=== PATIENT | male | born 1930 | race Caucasian/White ===

== ENCOUNTER 2019-08-14 23:39 | Inpatient (IN) | payer OTHER ==
[~2019-08-14] VITALS: Ht 182.9 cm; Wt 52.2 kg
[2019-08-15] MEDS ORDERED: NIACINAMIDE500 MG PO (05:36)
[2019-08-15] MEDS ORDERED: FLOMAX0.4 MG PO (05:37)
[2019-08-15] MEDS ORDERED: PROAIR HFA8.5 GM INH (05:39)
[2019-08-15] MEDS ORDERED: STIOLTO RESPIMAT4 GM INH (05:41)
--- NOTE | 2019-08-15 06:03 | NUR ---
Arrived via transport on a stretcher x2 transport staff @ 05:10. Transferred to bed 525 B x 4 assist. incontinent of urine upon arrival. Gives name as Redd which is not listed as any of his name(s). Order for jacques moraes and 1:1 while awake due to impulsive and SI expressed. TSH lab ordered. up in roslyn chair with jacques moraes in the day room at this writing.
[2019-08-15 07:40] VITALS: BP 138/69
--- NOTE | 2019-08-15 09:15 | NUR ---
THIS RN ATTEMPTED X 3 TO GET IN TOUCH WITH PATIENT'S DPOA (PATY DENNIS) ON PHONE NUMBER [phone] AND WAS TOLD IT WAS A WRONG NUMBER. THIS SUPERVISOR BOARDING CALLED [facility] FOR THE RIGHT NUMBER, AND WAS TOLD THAT THE ABOVE NUMBER IS THE ONLY NUMBER THEY HAVE FOR PATIENT'S DPOA. CLIENT PORTFOLIO MANAGER, DR. KENYON, AND GLOBAL REGULATORY LEAD AWARE. DR. KENYON GAVE PERMISSION TO ADMINISTER MEDICATION.
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
--- NOTE | 2019-08-15 16:09 | EKG ---
[facility] [place] [address] ELECTROCARDIOGRAM REPORT Name: LILIANA SOUTH Room #: [facility] Emergency Department ADM IN M.R.#: [id number] Admission: 08/15/19 Attend Phys: Faraz Bright DO Discharge: Date of : [birth year] Report #: [id number] THIS REPORT FOR: cc: MAU - Randi family physician/PCP MAU - No family physician/PCP Solis Prcie MD [facility] THIS REPORT FOR: //name// [facility] Test Date: 2019-08-15 Test Time: 11:38:44 Pat Name: LILIANA SOUTH Department: Room: [facility] Gender: M 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
--- NOTE | 2019-08-15 19:15 | NUR ---
Care of patient assumed at 1915. Patient is sitting in a recliner in the day room with 1:1 supervision sitting next to him. Patient is oriented to self only. Thinks the date is in the . Knows he is in the hospital, but not why or which hospital. Pleasant with staff and cooperates with assessment, though not able to appreciate or answer the questions. HS - vero, LS CTA though diminished, BS A x 4. Remains 1:1 while awake per orders.
[2019-08-15 19:33] VITALS: BP 123/67
--- NOTE | 2019-08-16 06:03 | NUR ---
Patient has been able to rest throughout the night despite using the bathroom. Patient has not reported SI but has made delusional comments regarding that staff is trying to kill him and that he needs to kill staff. Combative with toileting needs. Order obtained this AM to d/c 1:1 while awake status from BLAIR Viveros. Order obtained for lap aleisha to be used and secured in front. Requested for patient to be placed in dayroom for supervision while trial started of discontinuing 1:[address] Rose to evaluate this AM.
[2019-08-16 06:23] LABS: ABSOLUTE NEUTROPHILS 5.1 thou/uL (1.4-8.2); BASOPHILS 0.6 % (0.0-2.0); EOSINOPHILS 4.4 % (0.0-3.0); HEMATOCRIT 41.1 % (42.0-52.0); LYMPHOCYTES 14.5 % (24.0-44.0); MCH 31.7 pg (26.0-34.0); MCHC 33.9 g/dL (28.0-37.0); MCV 93.3 fL (80.0-100.0); MONOCYTES 8.5 % (1.0-8.0); PLATELET COUNT 209 thou/uL (150-400); RBC 4.41 mil/uL (4.50-6.00); RDW 12.8 % (10.5-14.5)
[2019-08-16 06:45] LABS: ALBUMIN 3.4 g/dL (3.4-5.0); CALCIUM 8.8 mg/dL (8.5-10.1); CREATININE 1.2 mg/dL (0.7-1.3); POTASSIUM 4.1 mmol/L (3.5-5.1); TOTAL BILIRUBIN 0.8 mg/dL (0.2-1.0)
[2019-08-16 07:15] VITALS: BP 159/93
--- NOTE | 2019-08-16 12:02 | NUR ---
RD RECOMMENDATIONS: 1) REC at least twice weekly weights as goal of no wt loss given low BMI 2) REC trial of ensure enlive BID until po trends better established, goal of 75% of meals consistently
[2019-08-16 12:36] VITALS: BP 168/86; BP 170/80
--- NOTE | 2019-08-16 12:38 | NUR ---
DELUSIONAL AND RUMINATIVE DURING 1;1 INTERACTION WITH NURSING STAFF-REPETIVIATIVE IN CONVERSATION-STATING MULTIPLE TIMES HAD BEEN "HERE" BEFORE AND THINGS WERE GREAT BUT NOW "IT'S TERRIBLE-THEY TREAT YOU LIKE A DOG-WON'T TAKE YOU TO THE BATHROOM AND "I HEARD THEM SAY LAST NIGHT "HE THINKS HE'S IN CHARGE AND WE ARE GOING TO SHOW HIM WHOSE IN CHARGE AND REFUSED TO HELP HIM-WITHHELD FOOD AND WATER UNTIL THIS MORNING WHEN "SOMEONE GAVE ME A CUP OF COLD COFFEE" "MY FOOD WAS TERRIBLE AND COLD BUT EVERYONE ELSE HAD HOT BISCUTS AND GRAVY-IT IS PART OF MY PUNISHMENT" HAS BEEN VOIDING FREQUENTLY THIS SHIFT-ASSSITED TO TOILET Q 1-2 HRS. DENIES C/O PAIN-DISCOMFORT. ORIENTED TO NAME ONLY-REMAINS ON FALLS PRECAUTIONS -GAIT VERY UNSTEADY AND RESISITVE WITH STAFF ASSISTANCE PUSHING STAFF AWAY AND REFUSING TO PULL PANTS DOWN UNTIL STAFF LEAVES HIM ALONE IN BATHROOM "I CAN DO IT" WHEN 2ND STAFF MEMBER SUMMONED BECOMES AGITATED AND COMBATIVE-OLANZAPINE 2.5MG GIVEN PO PRN FOR ABOVE NOTED.
--- NOTE | 2019-08-16 12:57 | NUR ---
ELIZABETH sent [facility] a referral for pt. ELIZABETH spoke with Joanna yesterday who asked her to do so. ELIZABETH team will continue to follow pt during his stay here.
--- NOTE | 2019-08-16 19:15 | NUR ---
Care of patient assumed at 1915. Patient is sittin gin recliner in day room. Confused, disoriented. Largely uncooperative with all cares/interventions. Combative, delusional, barely oriented to person. Finally gained med compliance with Clonidine that was ordered for elevated BP. Patient is taken to bed as he appears very drowsy. Within 20 minutes he is crawlingover the side rails. Patient placed back in recliner and taken back to day room for close supervision.
--- NOTE | 2019-08-16 19:18 | NUR ---
RESTLESS AND MILDLY AGITATED THROUGHOUT SHIFT-INSISTING THAT HE NEEDS TO GO HOME AND LOOKING FOR HIS WALLET AND BILLFOLD. GAIT IS VERY UNSTEADY AND CONFUSED-ORIENTED TO NAME ONLY-CALLING NURSE VASQUEZ AND ENTERING PEERS ROOMS LOOKING FOR "THAT WOMAN" SHE IS BRING ME TO MY TRUCK. CONTANT MOVEMENT. ZYDIS ODT 5MG GIVEN PO PRN AT APPROX. 1330 AND REPEATED AT 1800 FOR RESTLESSNESS,AGITATION. BP RECHECK MANUALLY Q 4 HOURS 160/86-162/84-170/80 AT 1730-HOWEVER PT IS VERY RESTLESS AND MOVING FREQUENTLY AND TALKING DURING BP CHECKS-PULSE RANGING FROM 70-90 AND REGULAR RATE AND RHYTHYM. SKIN W/D-DENIES C/O PAIN,ORR OR VISUAL DISTURBANCE. DR. CALVIN PAGED X2-AWAITNG RETURN CALL-DR. HESS CONTACTED AND O RECEIVED FOR CLONIDINE0.1MG PO NOW-AND REPORT GIVEN TO UNCOMING SHIFT
[2019-08-16 19:30] VITALS: BP 107/58
[2019-08-16 20:22] VITALS: BP 108/68
[2019-08-17 08:35] VITALS: BP 108/63
--- NOTE | 2019-08-17 10:13 | NUR ---
Pt in [facility] chairlocked. Bubba was in day room when I came on duty. Bubba talks a lot to self other,auditory hallucinations. Very disjointed chatter. Bubba did take his medications whole with out any reistance. Lungs sounded clearx2, pedal pulse strong and no pedal edema noted Bowel sounds active.Fluids encouraged and taken with meds when offered. Skin appears dry.Dr Rose attended pt. this Am.
[2019-08-17 18:47] VITALS: BP 108/63
--- NOTE | 2019-08-17 18:49 | NUR ---
Pt wasooum\nd my me in the day room,lap aleisha was around pt and chair alam was on. When asked a question Bubba brand designer is totally unrelated to the question .Alert x1. Dr Rose attended pt. Clientdid not have a bm , Lungs sounded clear, pedel pulse felt, no edema noted. Bubba eats moderated amts of food with encouragement. one 1 to Santhosh maldonado .
[2019-08-17 22:00] VITALS: BP 108/63
--- NOTE | 2019-08-18 02:37 | NUR ---
Assumed care of patient this pm shift. Patient sitting in mileu in a reclining chair. Patient denies pain. Patient denies hi/si. Patient is difficult to understand at times and talks about people he knows as if they are present during our assessment. Patient takes medications whole with fluids. Patients assessment shows no signs of acute distress, breath sounds clear, bowel sounds present, s1 s2 heard with auscultation. Patient is able to ambulate but has an unsteady, wobbly gait. We will continue to monitor per hospital protocol.
[2019-08-18 08:22] VITALS: BP 107/61
[2019-08-18 09:39] VITALS: BP 107/61
--- NOTE | 2019-08-18 10:31 | NUR ---
1030 RESUMMED CARE FROM OVERNIGHT SHIFT THIS AM, PATIENT IN DAY ROOM IN A RECLINER. PATIENTS ABDOMEN SOFT ROUND BOWEL SOUNDS PRESENT LUNGS CLEAR. PATIENT DENIES SI/HI/AH/VH AT PRESENT, IT IS SOMETIMES DIFFICULT TO UNDERSTAND AT TIMES. QUIET COOPERATIVE WILL CONTINUE TO MONITOR PATIENT FOR BEHAVIORS AND SAFETY.
[2019-08-18 20:14] VITALS: BP 111/83
--- NOTE | 2019-08-19 03:48 | NUR ---
08-18-19 CARE TRANSFERED AT 1915 OBSERVED PT IN DAY ROOM SITTING IN RECLINER. 1545 PT AAOX1, PT CALM AND COOPERATIVE DURING NURSING ASSESSMENT. PT DENIES ANY PAIN AND SI/SH/HI/VAH. PT HAS NO DIFFICULTIES DURING MEDICATION ADMIN. PT DOES NOT APPEAR TO BE IN ANY ACUTE EMOTIONAL DISTRESS AND ZERO ACUTE MEDICAL DISTRESS. WILL CONTINUE TO MONITOR PER [facility] PROTOCOL.
[2019-08-19 08:50] VITALS: BP 114/40
--- NOTE | 2019-08-19 11:52 | NUR ---
HAS BEEN VISIBLE IN DAYROOM IN [facility]-REPOSITIONED AND TOILETED Q 2 FOR COMFORT. MILDLY DROWSY-IS ROUSABLEW TO VERBAL QUEING BUT RESPONSES ARE MUMBLED,NON-GOAL DIRECTED-FRAGMENTED AND OFTEN TIMES INCOHERENT. ORIENTED TO NAME ONLY- DENIES C/O PAIN/DISCOMFORT. BS ACTIVE X 4-. AMBULATES WITH SBA X 1-SOME INCREASED AGITATION WITH TOILETING HE WILL GRAB ONTO PANTS,UNDERWEAR AND REFUSE TO LET GO-AT ONE POINT BEGAN TO STRIKE OUT AND CURSE AT STAFF DURING INCONTINENT CARE. REMAINS HIGH FALLS RISKD/T SEVERE CONFUSION,POOR IMPULSE CONTROL,WEAKNESS AND ATAXIA. APPETITE FAIR-ABLE TO FEED SELF WITH SET UP/PROMTPING-APPETITE FAIR. IS NOTED TO HAVE REDDEND AREA,MILD SWELLING TO RIGHT CALF-AREA NOT WARM TO TOUCH AND PT DENIES PAIN UPON PALPATION. DR CALVIN NOTIFIED-WILL CONTINUE TO MONITOR FOR INCREASED REDNESS,SWELLING,ELVATED TO TEMP OR PAIN.
--- NOTE | 2019-08-19 12:45 | NUR ---
FULL RANGE AFFECT DURING 1;1 WITH NURSING STAFF. DENIES SI/SH. ALERT AND ORIENTED X3. STATES SHE FEELS "LIKE I'M READY TO GO" AND DENIES SI/SH. REPORTS FEELING WORRIED ABOUT HER SISTER WHO LIVES [address] FROM HER AND IS SICK-ALSO REPORTS CONCERN FOR DOG WHO IS HOME ALONE AND CAR IN [place]ARKING LOT OF [facility]. DENIES SI/SH-STATES "I KNOW NOW I HAVE TO TAKE CARE OF MYSELF BUT I FEEL LIKE BEING HERE AND DOING NOTHING IS MAKING THINGS WORSE" REPORTS GOOD SLEEP BUT POOR APPETITE-"NOTHING TASTES GOOD" STATES NO BM X 3 DAYS-REFUSED MOM REQUESTING WARM PRUNE JUICE INSTEAD. DOES HAVE BS X 4-HYPOACTIVE GAIT STEADY WITHOUT ASSISTIVE DEVICES
--- NOTE | 2019-08-19 16:38 | NUR ---
Pt unable to participate in group due to cognitive deficit.
[2019-08-19 19:20] VITALS: BP 128/61
--- NOTE | 2019-08-19 23:29 | NUR ---
PT WAS IN THE DAYROOM, ON A GERICHAIR WITH LAP SANDRA IN PLACE AT TIME OF ASSESSMENT. PT WAS SLEEPING. LETHARGIC. PT DID NOT RESIST ASSESSMENT. PT GIVEN BEDTIME MED CRUHSED IN APPLESAUCE. PT WAS HESITANT IN TAKING MEDS AND VOICED TO NURSING " I WILL PUNCH YOU". PT WENT RIGHT BACK TO SLEEP AFTER MEDS. PT CURRENTLY IN THE DAYROOM ON THE GERICHAIR WITH LAP SANDRA IN PLACE. WILL CONTINUE TO MONITOR.
[2019-08-20 07:40] VITALS: BP 133/63
[2019-08-20 08:00] VITALS: BP 133/63
--- NOTE | 2019-08-20 10:16 | NUR ---
PT IN DAY ROOM IN RECLINER, LAB SANDRA OFF. UNABLE TO GIVE MEDS AT THIS TIME. PT SPIT OUT IN WATER CUP. PT NEEDS ASSIST WITH FEEDING.
--- NOTE | 2019-08-20 12:37 | NUR ---
SW received message from ROOSEVELT Martinez stating she has left several message with nursing staff and has not received a return call. She would like an update on pt. SW returned her call and received voicemail. SW left a voice message acknowledging her call.
--- NOTE | 2019-08-20 13:00 | NUR ---
GOT ORDERS CHANGED FOR MEDS TO BE CRUSHED AND CHANGED DEPAKOTE TO SPRINKLES.
--- NOTE | 2019-08-20 14:17 | NUR ---
PUT PRIMITIVO CURTIS IN YOGART, PT TOOK WITHOUT ANY ISSUES. GAVE PT WATER TO DRINK.
[2019-08-20 20:14] VITALS: BP 111/71
[2019-08-20 20:15] VITALS: BP 111/71
--- NOTE | 2019-08-21 02:08 | NUR ---
PATIENT HAS BEEN SITTING UP IN [facility] WITH LEGS INCLINED ALL EVENING. HE IS A/OX1. HE LEANS TO THE RIGHT WHEN SITTING. PILLOW PLACED FOR HEAD D/T HE RESTS IN ON THE WOOD OF THE ARMCHAIR. PATIENT REMOVES IT EACH TIME. LAP SANDRA IS ON AND FASTENED IN THE FRONT. PATIENT TOOK HIS MEDS CRUSHED IN YOGURT. HE DID NOT EACH MUCH FOR SNACK TONIGHT. HE REFUSED WATER WHEN TRYING TO GIVE. PATIENT HAS BEEN CALM FOR THE MOST PART. HE DOES GET RESTLESS AT TIMES. NO SI/HI/AVH NOTIED. PATIENT SLEEPING TONIGHT IN RECLINER. CONTINUING TO MONITOR.
[2019-08-21 05:38] LABS: ABSOLUTE NEUTROPHILS 6.4 thou/uL (1.4-8.2); BASOPHILS 0.6 % (0.0-2.0); EOSINOPHILS 2.1 % (0.0-3.0); HEMOGLOBIN 14.9 gm/dL (14.0-18.0); LYMPHOCYTES 8.8 % (24.0-44.0); MCH 31.4 pg (26.0-34.0); MCHC 33.2 g/dL (28.0-37.0); MCV 94.7 fL (80.0-100.0); MONOCYTES 10.5 % (1.0-8.0); PLATELET COUNT 201 thou/uL (150-400); RBC 4.76 mil/uL (4.50-6.00); WBC 8.2 thou/uL (4.0-11.0)
[2019-08-21 05:55] LABS: ALBUMIN 3.4 g/dL (3.4-5.0); CREATININE 1.4 mg/dL (0.7-1.3); POTASSIUM 3.9 mmol/L (3.5-5.1); TOTAL BILIRUBIN 1.1 mg/dL (0.2-1.0); TOTAL PROTEIN 6.6 g/dL (6.4-8.2)
[2019-08-21 09:07] VITALS: BP 115/61
--- NOTE | 2019-08-21 10:56 | NUR ---
HAS BEEN IN BED OR IN GERICHAIR SO FAR THIS SHIFT-SOMULENT BUT ROUSABLE TO VERBAL STIMULI. ORIENTED TO NAME ONLY-SPEECH INCOHERENT AND NON-GOAL DIRECTED. REQUIRES TOTAL ASSIST OF 1-2 WITH ALL ADLS AND CARES. APPETITE POOR. GAIT UNSTEADY ,RESISITIVE WITH TOILETING/INCONTINENT CARE HITTING AT AND TRYING TO KICK STAFF ALMOST LOSING FOORTING.
--- NOTE | 2019-08-21 14:49 | NUR ---
ELIZABETH received a vm from Elizabeth with [facility] stating they do not have any beds available for pt. ELIZABETH contacted pt's and provided this update. ELIZABETH sent her a listing of [place] facilities via Medicare.gov listing, and asked her to make a few choices and ELIZABETH will send out referrals for her. SW team will continue to follow pt during her stay on this unit.
[2019-08-21 19:34] VITALS: BP 143/84
--- NOTE | 2019-08-22 05:45 | NUR ---
PT ORIENTED TO SELF. CONFUSED. PT WAS IN HIS BED AT TIME OF ASSESSMENT. PT WAS COOPERATIVE WITH ASSESSMENT. PT TOOKS MEDS WHOLE WITH ORANGE JUICE PER PT'S REQUEST. PT SLEPT OFF AND ON THIS SHIFT. PT CURRENTLY AWAKE AND IN THE DAYROOM. FALL PRECAUTION IN PLACE. WILL CONTINUE TO MONITOR.
[2019-08-22 07:30] VITALS: BP 129/77
--- NOTE | 2019-08-22 08:11 | NUR ---
PT OUT IN DINNING AREA THIS AM IN KEILY CHAIR WITH ALEXIS FLORES. PT ALERT AND ORIENTED TO SELF. PT NEEDS HELP WITH EATING. PT TOOK AM MEDS WHOLE WITH WATER. PT DENIES ANY PAIN. PT LUNGS CLEAR. PT IS INCON. OF B/B AND NEEDS ASSISTANCE X2 TO PERFORM ADL'S.
--- NOTE | 2019-08-22 08:22 | NUR ---
RT Progress Note- Bubba's participation in both the milieu and recreation therapy has been minimal d/t patients cognitive deficits. Bubba is unable to follow through with tasks during activities, therefor has primarily participated in unstructured leisure- i.e. listening to music (he prefers western.) Bubba has not displayed any aggressive or agitative behaviors during RT interactions.
[2019-08-22 08:30] VITALS: BP 129/77
--- NOTE | 2019-08-22 16:37 | NUR ---
ELIZABETH sent referrals to [facility], [facility], and [facility]. ELIZABETH team will continue to follow pt during his stay on this unit.
[2019-08-22 19:50] VITALS: BP 112/68
--- NOTE | 2019-08-23 08:41 | NUR ---
RD Recommendations: 1) REC at least twice weekly weight checks given low BMI, goal of no loss. 2) Changed Ensure supplements timing to come on lunch and dinner trays when pt more awake/more likely to consume given morning sleepiness as of late.
[2019-08-23 10:09] VITALS: BP 123/67
[2019-08-23 15:39] VITALS: BP 123/67
--- NOTE | 2019-08-23 15:47 | NUR ---
PATIENT WAS UP IN [facility] WHEN CARE ASSUMED, LAB SANDRA IN PLACE. PATIENT IS ALERT, FORGETFUL, AND CONFUSED. PATIENT TOOK MORNING MEDICATION WHOLE WITHOUT DIFFICULTY. ASSISTED WITH MEALS BY STAFF. INCONTINENT ACRE PROVIDED PER STAFF. PATIENT DENIES SUICIDAL/HOMICIDAL IDEATION, NOT ABLE TO APPROPRIATELY RESPOND TO FURTHER ASSESSMENT QUESTIONS DUR TO COGNITIVE IMPAIRMENT. NO AGGRESSION OR AGITATION NOTED AT THIS TIME, WILL CONTINUE TO MONITOR FOR SAFETY.
[2019-08-23 19:35] VITALS: BP 104/55
--- NOTE | 2019-08-24 05:32 | NUR ---
Assumed care of pt @ 1900. Pt calm et cooperative this shift. Took medications whole without difficulty. Did not witness pt ambulation as he continues to rest in recliner most of shift. Two person assist with toileting most of the time. VSWNL. Health assessment with no abnormalities noted at present time. Unable to assess SI/HI due to pt's confusion but pt does not appear to be in any acute emotional distress at present time. Currently resting in recliner in dayroom with eyes closed. Will continue to monitor per protocol.
[2019-08-24 07:56] VITALS: BP 115/72
--- NOTE | 2019-08-24 14:21 | NUR ---
ELIZABETH followed up on referrals she sent the other day: [facility] [place] - denied due to no beds available [facility] - denied due to no beds available [facility] - denied due to no beds available [facility] - denied due to no male beds available ELIZABETH team will continue to follow pt during his stay on this unit.
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
--- NOTE | 2019-08-24 19:31 | NUR ---
NOTED DURING INCONTINENT CARE TO HAVE REDDENED AREA TO MIDLINE COCYX-NO OPEN AREAS SEEN-BARRIER CREAM APPLIED AND PAD IN GERICHAIR TO REDUCE PRESSURE-DID ATTEMPT TO LAY DOWN IN BED X 2 AND POSITION ON SIDE BUT BECOMES RESTLESS AND AGITATED IN BED TRYING TO CRAWL OVER SIDE RAIL-"I DON'T LIKE BEING IN THIS CAGE"CONTINUES TO BECOME AGITATED DURING TOILETING AND INCONTIENT CARE-GRABS ON TIGHTLY TO PANTS AND REFUSES TO LET GO-BEGINS TO SWEAR AND PULL AWAY FROM STAFF.
[2019-08-24 20:15] VITALS: BP 123/56
--- NOTE | 2019-08-25 00:56 | NUR ---
08/24/191899 ASSUMED CARE OF PT AFTER REPORT, 193 BASELINE ASSESSMENT COMPLETED, PT INCONTINENT IN CHAIR, ATTEMPTED TO GET IN BED, PT EXTREMELY COMBATIVE SCREAMING JUST LEAVE ME ALONE WILL LEAVE PT IN JUDITH CHAIR IN DAY ROOM SO OBSERVATION CAN BE FROM NURSES STATION, WITH CHUTE TAPPER'S IN ROOM. 2099 PT TOOK MED WITHOUT DIFFICULTY, AND HAD A COUPLE BITES OF YOGURT WITH IT, WILL CONTINUE TO MONITOR, FALL PRECAUTIONS IN PLACE.
[2019-08-25 08:21] VITALS: BP 119/66
[2019-08-25 09:52] VITALS: BP 119/66
--- NOTE | 2019-08-25 11:03 | NUR ---
1035 RESUMMED CARE FROM OVERNIGHT SHIFT THIS AM, PATIENT QUIET COOPERATIVE IN DAY ROOM. PATIENTS ABDOMEN SOFT ROUND BOWEL SOUNDS PRESENT LUNGS CLEAR. PATIENT TOOK MEDICATION WITHOUT INCIDENCE PATIENT DENIES SI/HI/AH/VH AT PRESENT. PATIENT QUIET IN RECLINER FOR COMFORT AND SAFETY, WILL CONTINUE TO MONITOR PATIENT FOR SAFETY AND BEHAVIORS.
[2019-08-25 19:57] VITALS: BP 103/42
[2019-08-25 22:00] VITALS: BP 103/42
--- NOTE | 2019-08-26 00:31 | NUR ---
Assumed care of patient this pm shift. Patient sitting in the mileu in a reclining chair with peers. Patient not interacting with peers but does speak to himself and sometimes uses profanity. Patient is alert and oriented to self only. Patients affect is flat. Patient is adherent with medications and takes them crushed. Patient denies pain. Patient denies si. Patient is difficult to understand due to the randomness of his thoughts. Patients assessment shows clear breath sounds diminished in the bases, active bowel sounds, and s1 s2 heard with auscultation. Patient is incontinent of bowel and bladder and wears a brief. We will continue to monitor per hospital policy.
[2019-08-26 09:06] VITALS: BP 115/64
[2019-08-26 10:16] LABS: ABSOLUTE NEUTROPHILS 5.7 thou/uL (1.4-8.2); BASOPHILS 0.6 % (0.0-2.0); EOSINOPHILS 1.7 % (0.0-3.0); HEMATOCRIT 46.2 % (42.0-52.0); HEMOGLOBIN 15.7 gm/dL (14.0-18.0); LYMPHOCYTES 11.6 % (24.0-44.0); MCH 31.9 pg (26.0-34.0); MCHC 33.9 g/dL (28.0-37.0); MCV 93.9 fL (80.0-100.0); MONOCYTES 9.5 % (1.0-8.0); PLATELET COUNT 188 thou/uL (150-400); POLYS 76.6 % (36.0-66.0); RBC 4.92 mil/uL (4.50-6.00); RDW 13.1 % (10.5-14.5); WBC 7.5 thou/uL (4.0-11.0)
[2019-08-26 10:34] LABS: ALBUMIN 3.5 g/dL (3.4-5.0); CALCIUM 9.4 mg/dL (8.5-10.1); CREATININE 1.3 mg/dL (0.7-1.3); MAGNESIUM 2.3 mg/dL (1.8-2.4); POTASSIUM 4.2 mmol/L (3.5-5.1); TOTAL BILIRUBIN 0.6 mg/dL (0.2-1.0); TOTAL PROTEIN 6.7 g/dL (6.4-8.2)
[2019-08-26 13:03] VITALS: BP 115/64
[2019-08-26 20:04] VITALS: BP 129/74
[2019-08-26 22:00] VITALS: BP 129/74
--- NOTE | 2019-08-27 05:49 | NUR ---
Assumed care of patient this pm shift. Patient oriented to self only. Patient [facility] Patient calm and relaxed occasionally speaking out but to no one person in particular. Patient does not appear to be in pain. Patient was unclear on the hi/si questions. Patients assessment shows clear and diminished in the bases breath sounds, active bowel sounds, and s1 s2 heard with auscultation. Patient takes medications crushed in pudding or applesauce. Patient is mostly incoherent. Patient is incontinent of bowel and bladder. We will continue to monitor per hospital policy.
[2019-08-27 07:35] VITALS: BP 115/74
--- NOTE | 2019-08-27 11:41 | NUR ---
ELIZABETH received a call from Elizabeth with [facility] stating that they now do have a male bed opening. The asked for ELIZABETH to send updates to see if they can still meet pt's needs. ELIZABETH contacted Elizabeth and explained pt will all need hospice as he has stopped eating. Elizabeth said they can accomodate. ELIZABETH told her she will speak with Anette first. ELIZABETH contacted Anette who agreed for pt to leave tomorrow to go to [facility] with hospice. She said she will be moving to [facility] tomorrow. ELIZABETH provided an update to Dr. Rose who said she will write a hospice order. Dr. Bright said he is ordering a COVID-19 test for pt. SW team will continue to follow pt during his stay on this unit.
--- NOTE | 2019-08-27 18:21 | NUR ---
PT AWAKE BUT MOSTLY LETHARGIC TODAY. VSS. PT DID NOT ANSWER ASSESSMENT QUESTIONS. PT DOES NOT APPEAR TO BE IN ANY PAIN. PT DID TAKE MEDS, BUT HAS HAD A POOR APPETITE THIS SHIFT. PT WAS UP IN DINING ROOM WITH NO INTERCATIONS WITH HIS PEERS. WILL CONTINUE TO MONITOR.
[2019-08-27 22:05] VITALS: BP 109/72
--- NOTE | 2019-08-28 05:04 | NUR ---
ASSUMED CARE OF PT FROM DAY SHIFT , PT RESTING BED APPEARS TO BE SLEEPING, PT AWAKEN FOR ASSSEMENT , PT CONFUSED , ABLE TO TAKE PO MEDICATION , WITHOUT DIFFICUTY. AFTER 4 HOURS OF SLEEPING PT AWAKEN SITTING ON SIDE OF BED. PT BREIF CHANGED AND THEN PLACED IN JUDITH CHAIR DUE TO CONTINUE TO ATTEMPT TO GET OUT OF BED AND PT VERY UNSTEADY . PT RESTING IN CHAIR THEN PLACED BACK TO BED. WILL CONINTUE TO MONITOR AND REPORT CHANGES OR ABNORMAL FINDING.
[2019-08-28 06:22] LABS: CALCIUM 9.6 mg/dL (8.5-10.1); CREATININE 1.7 mg/dL (0.7-1.3); POTASSIUM 3.9 mmol/L (3.5-5.1)
--- NOTE | 2019-08-28 09:46 | NUR ---
WOUND CARE CONSULT; ASSESSED L BUTTOCK SACRAL WOUND W/ NABIL TRAN WOUND COORDINATOR, PT COOPERATIVE BUT CONFUSED, SKIN BREAKDOWN L BUTTOCK STAGE 2, ERYTHEMA PRESENT PERIWOUND SACRUM, NO S/S INFECTION, INCONT URINE AND STOOL RECOMMENDATIONS; PROTECTIVE CREAM W/ ZINC IE Z GUARD DAILY AND PRN ESPECIALLY AFTER Q INCONT EPISODE, SUGGEST TO NOT SIT LONGER THAN 2 HOURS PERIODS, OFF LOADING PRESSURE RELIEF, TURN Q2 HOURS WHEN IN BED, WAFFLE SEAT CUSHION WHEN IN CHAIR CLOCK AND WATCH HANDS DIPPER AWARE
[2019-08-28] MEDS ORDERED: SEROQUEL 25 MG25 M1 PO ×3 (10:28)
--- NOTE | 2019-08-28 11:21 | NUR ---
REPORT CALLED LAUREL AT [facility] DC [facility]DERS/RX AND DISCHARGE [id number] COPIED AND SENT IN PACKET WITH PT.-ATTEMPTED TO CALL ROOSEVELT OVALLE TO REVIEW DC PAPERWORK BUT NO ANSWER -MESSAGE LEFT. PERSONAL BELONGINGS SECURED AND SENT WITH PT INCLUDING FULL SET DENTURES AND GLASSES. IN WC ACCOMPNIED BY STAFF TO AWAITING [employer] VAN. ALERT AND COOPERTIVE AT TIME OF DC. IBUPROFEN 600MG GIVEN PO PRN FOR REPORTED ALL OVER PAIN RATED A 5 ON 1-10 SCALE,
[2019-08-28 11:29] VITALS: BP 109/72
[2019-08-28 11:35] VITALS: BP 125/64
--- NOTE | 2019-08-28 11:37 | NUR ---
ELIZABETH D/C note ELIZABETH faxed negative COVID-19 results, d/c docs, and medication list to [facility] richy Farris. ELIZABETH also contacted Lin with [facility] and let her know pt was leaving. [facility] also [facility] and told [facility] nurse pt is leaving. No other needs for ELIZABETH team to address at this time.
--- NOTE | 2019-08-28 12:40 | NUR ---
ELIZABETH received a call from Calir with the [facility] asking her to fax discharge docs to [phone]. ELIZABETH did so.
== END 2019-08-28 11:15 | DRG 884 ==
LOC: SBH 23:39
PROVIDERS: Internal Medicine; Psychiatry & Neurology Psychiatry; ADMIT Psychiatry & Neurology Psychiatry; ATTEND Psychiatry & Neurology Psychiatry
DX: F03.91 Unspecified dementia, unspecified severity, with behavioral disturbance (principal); E43 Unspecified severe protein-calorie malnutrition; N17.9 Acute kidney failure, unspecified; Z68.1 Body mass index [BMI] 19.9 or less, adult; J44.9 Chronic obstructive pulmonary disease, unspecified; E86.0 Dehydration; F29 Unspecified psychosis not due to a substance or known physiological condition; Z20.828 Contact with and (suspected) exposure to other viral communicable diseases; Z79.899 Other long term (current) drug therapy
CPT/HCPCS: 10880